=== PATIENT | male | born 1950 | race Caucasian/White ===

== ENCOUNTER 2018-08-22 09:56 | Emergency (ER) | payer MEDICARE ==
--- NOTE | 2018-08-22 10:18 | ED ---
Lower Extremity - HPI Summary HPI Summary: Patient is a 68-year-old male with no significant PMH presenting to the ED with a left lower extremity injury. Patient states last evening he was trying to pull a horse out of the stall when the danni broke loose, hitting his lower extremity over the mcqueen. He has remained ambulatory, however with pain. He states he has been limping since that time. Symptoms are worse with ambulation and better with rest. Worse with dorsiflexion and better with plantar flexion. Denies any pain to the knee or the hip. He does endorse hitting his head, however no LOC. He states he felt a little "off" for approximately 5 minutes, but this resolved. He denies any headache, visual changes at this time. Patient is not on blood thinners. Symptoms have been improving with Advil. The injury occurred at approximately 6 PM last evening or 29 hours ago. - History of Current Complaint Chief Complaint: EDExtremityLower Stated Complaint: FALL/LEG INJURY Time Seen by Provider: 08/22/18 10:02 Hx Obtained From: Patient Mechanism Of Injury: Direct Blow Onset of Pain: Hours Onset/Duration: Hours Severity Initially: Moderate Severity Currently: Moderate Pain Intensity: 5 Pain Scale Used: 0-10 Numeric Timing: Constant Location: Is Discrete @ - left anterior leg injury Character Of Pain: Aching Associated Signs And Symptoms: Positive: Bruising. Negative: Swelling, Redness Aggravating Factor(s): Standing, Ambulation Alleviating Factor(s): Rest Able to Bear Weight: No - Risk Factors Gout Risk Factors: Negative DVT Risk Factors: Negative Septic Arthritis Risk Factor: Negative - Allergies/Home Medications Allergies/Adverse Reactions: Allergies Allergy/AdvReac Type Severity Reaction Status Date / Time No Known Allergies Allergy Verified 03/19/14 07:45 Home Medications: Home Medications Lisinopril/HCTZ 20/12.5(NF) [Zestoretic 20/12.5(NF)] 1 tab PO BID 08/22/18 [ History Confirmed 08/22/18] Tamsulosin CAP* [Flomax CAP*] 0.4 mg PO DAILY 08/22/18 [History Confirmed ] PMH/Surg Hx/FS Hx/Imm Hx Previously Healthy: Yes - Immunization History Hx Pertussis Vaccination: No Immunizations Up to Date: Yes Infectious Disease History: No Infectious Disease History: Denies: Traveled Outside the [place] in Last 30 Days - Social History Occupation: Employed Full-time Lives: With Family Alcohol Use: None Hx Substance Use: No Substance Use Type: Reports: None Smoking Status (MU): Light Every Day Tobacco Smoker Amount Used/How Often: 2-3 cig/day Review of Systems Constitutional: Negative Negative: Fever, Chills, Fatigue, Skin Diaphoresis Negative: Palpitations, Chest Pain Negative: Shortness Of Breath, Cough Genitourinary: Negative Positive: no symptoms reported, see HPI Positive: Myalgia - left lower extremity pain to the anterior portion - no pain to the calf. Negative: Arthralgia Skin: Negative Neurological: Negative Negative: Headache, Weakness, Paresthesia, Numbness, Syncope All Other Systems Reviewed And Are Negative: Yes Physical Exam Triage Information Reviewed: Yes Vital Signs On Initial Exam: Initial Vitals Temp Pulse Resp BP Pulse Ox 99.0 F 80 20 166/83 98 08/22/18 09:58 08/22/18 09:58 08/22/18 09:58 08/22/18 09:58 08/22/18 09:58 Vital Signs Reviewed: Yes Appearance: Positive: Well-Appearing, Well-Nourished Skin: Positive: Warm, Skin Color Reflects Adequate Perfusion Head/Face: Positive: Normal Head/Face Inspection Eyes: Positive: EOMI, ROJAS, Conjunctiva Clear Neck: Positive: Supple, No Lymphadenopathy Respiratory/Lung Sounds: Positive: Clear to Auscultation, Breath Sounds Present Cardiovascular: Positive: Pulses are Symmetrical in both Upper and Lower Extremities. Negative: Leg Edema Left, Leg Edema Right Musculoskeletal: Positive: Pain @ - left anterior leg pain with ecchymosis and swelling Neurological: Positive: Alert, Oriented to Person Place, Time, Speech Normal Psychiatric: Positive: Affect/Mood Appropriate Diagnostics - Vital Signs Vital Signs Temp Pulse Resp BP Pulse Ox 08/22/18 09:58 99.0 F 80 20 166/83 98 - Laboratory Lab Statement: Any lab studies that have been ordered have been reviewed, and results considered in the medical decision making process. Lower Extremity Course/Dx - Course Course Of Treatment: PATIENT is a 68-year-old male who presents to the ED with a left lower extremity injury. He states he had a danni system breakaway and pushed into his left lower extremity, he states he's been ambulatory, however with pain. He is endorsing swelling and ecchymosis over the area. No pain to the knee, ankle or hip on palpation. X-ray obtained colon transverse slightly displaced fracture of the mid diaphysis of the fibula. Discussed case with Dr. Dawn who recommended a posterior splint and follow-up with orthopedics. Patient is given a posterior sugar tong splint, crutches and is encouraged ibuprofen and elevation. He will follow-up with Dr. Monzon either this week or next week. Patient is okay for discharge at this time. - Diagnoses Provider Diagnoses: Closed fibular fracture Discharge - Sign-Out/Discharge Documenting (check all that apply): Patient Departure Patient Received Moderate/Deep Sedation with Procedure: No - Discharge Plan Condition: Stable Disposition: HOME Patient Education Materials: Leg Fracture (ED) Forms: *Work Release Referrals: Toro Becerril MD [Medical Doctor] - Peter Min MD [Primary Care Provider] - Additional Instructions: Please follow up with Dr. Hurt Call today for an appt Keep the splint applied and dry Crutches for ambulation You will get a further note regarding off from work time from ortho Do not bear weight - Billing Disposition and Condition Condition: STABLE Disposition: Home
[2018-08-22 12:31] VITALS: BP 151/76
== END 2018-08-22 12:30 | disposition home or self-care (01) ==
LOC: ED 09:56
DX: S82.492A Other fracture of shaft of left fibula, initial encounter for closed fracture (principal); W22.8XXA Striking against or struck by other objects, initial encounter; Y93.K9 Activity, other involving animal care; Y92.9 Unspecified place or not applicable; F17.210 Nicotine dependence, cigarettes, uncomplicated
CPT/HCPCS: 29515; 99281